=== PATIENT | female | born 1990 | race Caucasian/White ===

== ENCOUNTER 2023-10-29 10:35 | Inpatient (IN) | payer OTHER, SELFPAY ==
--- NOTE | 2023-10-22 15:53 | HP.PCM_ITS ---
History and Physical Date of Admission: 10/29/23 HPI: The patient is a 33 year old female presenting for pre-operative visit. She is scheduled for , for di/di twins and breech twin A on 10/29/23. Procedure discussed along with risks, benefits and complications. Other alternatives discussed for management. Consent form signed? Yes. PAST MEDICAL HISTORY PAST MEDICAL HISTORY Diagnosis Date ? Allergies ? Anemia ? Asthma ? Herpes, genital ? History of anxiety ? Mental disorder ? depression PAST SURGICAL HISTORY PAST SURGICAL HISTORY Procedure Laterality Date ? TONSILLECTOMY & ADENOIDECTOMY <AGE 12 CURRENT MEDICATIONS Current Outpatient Medications Medication Sig Dispense Refill ? acyclovir (ZOVIRAX) 400 mg tablet Take 1 tablet by mouth three times a day. 90 tablet 2 ? ferrous sulfate 325 mg (65 mg iron) tablet Take 1 tablet by mouth every other day. 30 tablet 4 ? aspirin, enteric coated (ASPIRIN, ENTERIC COATED) 81 mg EC tablet Take 81 mg by mouth once daily. ? albuterol (PROVENTIL) 2.5 mg/3 mL nebulizer solution ? EPINEPHrine (EPIPEN 2-NÉSTOR) 0.3 mg/0.3 mL auto-injector ? [id number]-xpjr-met-choln (GERITOL TONIC WITH FERREX 18) 2.5 mg-50 mg-18 iron/15 mL liqd ? PNV/ferrous sulfate/folic acid (LIQUID VITAMIN ORAL) No current facility-administered medications for this visit. ALLERGIES: Eggs [Egg], Iodine, Milk, Shellfish Derived, and Sulfites PERSONAL HISTORY: SOCIAL HISTORY Social History Tobacco Use ? Smoking status: Former Years: 5 Types: Cigarettes Quit date: 03/24/2013 Years since quittin.5 ? Smokeless tobacco: Never Vaping Use ? Vaping Use: Never used Substance Use Topics ? Alcohol use: Not Currently Comment: rarely ? Drug use: Never FAMILY HISTORY: FAMILY HISTORY FAMILY HISTORY Problem Relation Age of Onset ? other (basal cell carcinoma) Mother ? Bipolar disorder Father ? Suicide Attempts Father ? Alcohol/Drug Father ? Alcohol/Drug Brother ? Alcohol/Drug Brother ? Hypertension Maternal Grandmother ? Heart Maternal Grandmother ? Hyperlipidemia Maternal Grandmother ? Hypertension Maternal Grandfather ? Skin Cancer Maternal Grandfather ? Lung Cancer Maternal Grandfather ? Heart Maternal Grandfather ? Brain Cancer Paternal Grandmother ? Diabetes Paternal Grandfather ? No Known Problems Daughter ? No Known Problems Daughter REVIEW OF SYMPTOMS: GENERAL: denies fevers or chills ENDOCRINOLOGY: has not been on steroids Cardiology : denies palpitations or chest pain Respiratory: denies SOB or cough Hematology: denies history of prolonged bleeding or easy bruising or VTE Allergy: Denies history of personal or family history of allergy to anesthesia PHYSICAL EXAMINATION: VITALS: Blood pressure 109/76, weight 210 lb 6.4 oz (95.4 kg), last menstrual period 02/11/2023. GENERAL: The patient is well nourished, well hydrated in no acute distress. , The patient is oriented to time, place, and person. NECK: Supple. No lynphadenopathy, normal thyroid, no thyromegaly. LUNGS: Clear to auscultation bilaterally. no wheezes, rhonchi or rales HEART: Regular rate and rhythm, Normal heart sounds, and No murmurs or gallops abd- soft, nontender, gravid IMPRESSION: Estimated Date of Delivery: 11/18/23 Di/DI twins, breech twin a PLAN: The risks/benefits/alternatives and personal involved for the planned c- section were reviewed with the patient. Her questions were answered to her satisfaction and she desires to proceed. Consent was signed. I reviewed with her postop instructions and expectations. I have reviewed and updated past medical and surgical history, medications and allergies
[2023-10-29] VITALS (15 sets, daily range): BP systolic 94–117; BP diastolic 62–89; PULSE 66–94; RESP 16; TEMP 36.1–36.9; O2SAT 96–100; BMI 38.6
--- NOTE | 2023-10-29 09:12 | PCM.PRE.AN2 ---
ASA Classification* ASA Classification ASA Classification: 2 Assessment & Plan Anesthesia* Anesthesia Assessment Anesthesia Assessment: Discussed sedation and/or anesthesia options, risks, benefits, and alternatives with patient/parents/legal guardian. Questions invited. The patient/parents/legal guardian/POA seems to understand and agrees to proceed with anesthesia plan. Reviewed the physical assessment, medical history, allergy history and patient home medications list prior to surgery/procedure/anesthetic and documented any changes. Performed airway and anesthesia risk assessments. 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 When Was Last Pacemaker Check QUESTION #4 FULL TEXT: You/Your Family Experience fever (hyperthermia) with Anesthesia PONV PONV - rail car unloader: PONV - rail car unloader Female HX of Motion Sickness HX of N/V After Surgery Non-Smoker Duration of Surgery greater than 60 minutes Number of Risk Factors PONV Score Respiratory Assessment Respiratory Assessment - rail car unloader: Respiratory Tract Infection Hx - rail car unloader Hx Respiratory Tract Infection STOP Sleep Apnea STOP Sleep Apnea - rail car unloader: STOP Sleep Apnea - rail car unloader Hx Hypertension Hx Sleep Apnea CPAP BIPAP Do you snore loudly (louder than talking or can be heard Do you often feel tired/ fatigued/ sleepy during daytime? Has anyone observed you stop breathing during sleep? STOP Results QUESTION #5 FULL TEXT : Do you snore loudly (louder than talking or can be heard through closed doors)? 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 Specify any problems Hx of Preganancy in last 3 Months Nurse Filling Out Transfusion & Questions: Date: Time: Patient unable to answer at this time (ie. confused, unrespo /Reproduction History /Reproductive History - rail car unloader: /Reproductive Hx- rail car unloader Hx Now Gestational Age (in weeks): EDC: Hx Hx Para Hx Section SAB Anesthesia Focused Assessment* Airway Assessment Mouth opens (cm): 3 Mallampati Score: II Focused Labs Anesthesia Preop lab: CBC WBC 9.5 K/mm3 (4.4-11.0) 10/30/23 04:25 RBC 3.28 M/mm3 (4.2-5.4) L 10/30/23 04:25 Hgb 9.0 g/dL (12.0-15.0) L 10/30/23 04:25 Hct 28.3 % (37-47) L 10/30/23 04:25 Plt Count 167 K/mm3 (150-450) 10/30/23 04:25 CHEMISTRY COAG Review of Systems (Anesthesia) ROS Narrative System reviewed and no additional complaints, except as documented. [facility] Medical History (Updated 11/01/23 @ 11:05 by Claire Ferrell CNM) Genital herpes affecting Asthma Headache depression Depression Anxiety Home Medications ?Medication ?Instructions ?Recorded ?Last Taken ?Type acyclovir 400 mg tablet 400 mg PO TID herpes 10/29/23 Unknown History albuterol sulfate .ROUTE asthma 10/29/23 Unknown History aspirin 81 mg capsule 81 mg PO DAILY 10/29/23 Unknown History epinephrine 0.3 mg/0.3 mL 0.3 mg IM Q1H PRN anaphylaxis 10/29/23 Unknown History injection syringe ferrous sulfate 325 mg (65 mg 325 mg PO TID anemia 10/29/23 Unknown History iron) tablet vit no.95-ferrous 1 tab PO DAILY supplement 10/29/23 Unknown History fumarate 28 mg-folic acid 800 mcg tablet () acetaminophen 650 mg/20.3 mL oral 1,000 mg (31.2308 mL) PO Q6H 11/01/23 Unknown Rx solution #1,015 mL ibuprofen 100 mg/5 mL oral 600 mg (30 mL) PO Q6H #473 mL 11/01/23 Unknown Rx suspension (Children's Ibuprofen) sennosides 8.6 mg-docusate sodium 1 - 2 tab PO DAILY #0 tabs 11/01/23 Unknown Rx 50 mg tablet (Stool Softener-Stimulant Laxative) Allergy/AdvReac Type Severity Reaction Status Date / Time iodine Allergy Severe Anaphylaxis Verified 10/29/23 10:56 lactose (dairy lactose) Allergy Severe Chest Verified 10/29/23 10:56 tightness shellfish derived Allergy Severe Anaphylaxis Verified 10/29/23 10:56 egg Allergy Mild Abd Verified 10/29/23 10:56 cramps/diarrhea sulfite Allergy Unknown Other Verified 10/29/23 10:56 Surgical History (Updated 10/30/23 @ 08:53 by Claire Ferrell CNM) History of surgery Social History Smoking Status: Never smoker
[2023-10-29] MEDS: Lactated Ringers 1,000 ML 999 ML IV (10:00)
[2023-10-29 11:19] LABS: Absolute Lymphocyte Count 1.86 X10^3/uL (0.83-4.51); Basophil# 0.04 X10^3/uL; Basophil% 0.5 % (0-1); Eosinophil# 0.19 X10^3/uL; Eosinophils% 2.5 % (0-5); Hematocrit 31.3 % (37-47); Lymphocyte # 1.86 X10^3/ul (0.83-4.51); Lymphocyte % 24.1 % (19-41); Mean Corp Hgb Conc 31.9 g/dL (32-36); Mean Corpuscular Hgb 27.3 pg (27.0-32.0); Mean Corpuscular Volume 85.5 fL (81-99); Mean Platelet Vol. 11.7 fl (6.2-12.0); Monocyte# 0.57 X10^3/uL; Monocyte% 7.4 % (0-10); NRBC Flagged by Analyzer 0 % (0-5); Neutrophil # 4.99 X10^3/uL (2.7-7.7); Neutrophil % 64.7 % (47-70); Platelet Count 196 K/mm3 (150-450); RBC Distribution Width CV 17.2 % (11.6-14.6); Red Blood Count 3.66 M/mm3 (4.2-5.4); White Blood Count 7.7 K/mm3 (4.4-11.0)
[2023-10-29] MEDS: Lactated Ringers 1,000 ML 150 ML IV (11:29)
[2023-10-29 11:30] LABS: Syphilis Antibodies Non-reactive
[2023-10-29] MEDS: Sodium Citrate/Citric Acid 30 ML UDC PO (11:53)
[2023-10-29] MEDS: Cefazolin 2 GM in 0.9% Normal Saline (100mL Bag) 100 ML IV (12:27)
--- NOTE | 2023-10-29 12:35 | PLAC_PTH ---
PATIENT: JACK CANADA LOC: [facility] U#:[id number] AGE/SX: 33/F ROOM: WP007 RE10/29/[address]: Dr. Brittaney Penaloza MD : 1990 BED: 1 DIS: 11/01/2023 SPEC #: [id number] RECD: 10/29/23 15:57 STATUS: TERRENCE SILVA #: [id number] SWATI: 10/29/23 12:[address]: Brittaney Penaloza DEPT: SURGICAL PATHOLOGY RECD BY: Felipe Grayson ENTERED: 10/30/23 07:14 SP TYPE: PLACENTA OTHR DR: Dr. Stephanie Hsu, Tissues: Placenta, NOS Procedures: Surgery Specimen Level V HEADER OPERATION: section PRE-OP DIAGNOSIS: Twins TISSUE SUBMITTED: Placenta MICROSCOPIC DIAGNOSIS Twin placenta: Dichorionic and diamniotic Twin Placenta. PLACENTA A: Placental disc - third trimester placenta (397 gm). Membranes - no pathologic diagnosis. Umbilical cord - three blood vessels and no pathologic diagnosis. PLACENTA B: Placental disc: third trimester placenta (412gm). Membranes; no pathologic diagnosis. Umbilical cord: three blood vessels and no pathologic diagnosis. SJ: 11/03/2023 MICROSCOPIC DESCRIPTION Slides are reviewed. GROSS DESCRIPTION SPECIMEN: TWIN PLACENTA / CLINICAL INFORMATION: A. Weight: A - 2.385 kg; B - 2.535kg B. Gestational Age: 37 weeks C. Sex: A- Female, B- Female This specimen consists of twin placenta with two separate placental discs, two membranous sacs, and two umbilical cords. Placenta A is identified by a clamp. Dividing membranes septum is not clearly identified, possibly present on placenta B. PLACENTA A: PLACENTAL WEIGHT (POST FIXATION): 397gm PLACENTAL DIMENSIONS: 18.0 x 16.0 x 3.0cm PLACENTAL SHAPE: triangular PLACENTAL WEIGHT FOR GESTATIONAL AGE: Within 10-99th percentile MEMBRANES - Present A. Insertion: Marginal B. Site of rupture from edge: Fragmented. Distance of rupture cannot be assessed C. Color of membrane: Dias-issa D. Abnormalities: None UMBILICAL CORD - Present A. Color: Dias-issa B. Insertion: Central C. Length: 27.0cm D. Diameter: 1.2cm E. Number of vessels: Three F. Abnormalities: None PLACENTAL DISC - Present A. Color of surface: Dias-issa B. surface abnormalities: None C. Maternal cotyledons: Intact with minimal tears D. Attached retro placental clot: No clot E. Cut surface: Dark red and spongy F. Lesions: None G. Separate clot: Absent PLACENTA B: PLACETNAL WEIGHT- 412 gm PLACENTAL DIMENSION - 18.0 x 19.0 x 3.0cm PLACENTAL SHAPE- Usual ovoid PLACENTAL WEIGHT FOR GESTATIONAL AGE: Within 10-99th percentile MEMBRANES - Present A. Insertion: Marginal B. Site of rupture from edge: Fragmented. Distance of rupture cannot be assessed C. Color of membrane: Dias-issa D. Abnormalities: None UMBILICAL CORD - Present A. Color: Dias-issa B. Insertion: Paracentral C. Length: 22.0cm D. Diameter: 1.5cm E. Number of vessels: Three F. Abnormalities: None PLACENTAL DISC - Present A. Color of surface: Dias-issa B. surface abnormalities: None C. Maternal cotyledons: Intact with minimal tears D. Attached retro placental clot: No clot E. Cut surface: Dark red and spongy F. Lesions: None G. Separate clot: Absent SECTIONS SUBMITTED: Cylinder Handler sections are submitted in 12 cassettes as follows: Placenta A- 1-6 (1 - Membrane, 2 - umbilical cord maternal length, 3- umbilical length, 4-6 - placental disc, maternal and surface), 7-11 - placenta B (7 - membrane roll, 8 - umbilical cord, length inked black, 9-11 - placental disc, maternal and surfaces),12- l area suspicious for dividing membrane septum. SIDDHARTH/ 11/02/23 TC:4 CPT: 76082 x2
--- NOTE | 2023-10-29 13:15 | OP.PCM_ITS ---
Maternal Data Information Final GABRIELLA: 11/18/23 Gestational age: 37 1/7 Details Operative Information Date of Procedure: 10/29/23 Pre-Operative Diagnosis: dichorionic diamniotic twins, breech twin 1 Post-Operative Diagnosis: same Classification: Scheduled Procedure Type: low transverse kettle cook #1: Michael Frias Type of Anesthesia: Spinal Anesthesiologist: Franci Reilly Antibiotic Given: Ancef 2 grams IV x1 Drain: Ramsey to straight drain Estimated Blood Loss: 800 Fluids Replaced: 1000 Procedure Start Time: 12:48 Procedure Stop Time: 13:19 Time of Delivery: 12:51 Findings Description of Procedure: The patient was taken to the operating room. She was prepped and draped in the dorsal supine position with a leftward tilt. A Pfannenstiel skin incision was made approximately 2 cm above the symphysis pubis and carried through to underlying layer fascia with the scalpel. The fascia was incised incised in the midline and extended laterally with the Smith scissors. The fascia was dissected off the rectus muscles with blunt and sharp dissection. The rectus muscles were in the midline and the peritoneum was entered bluntly. The peritoneal incision was stretched and the bladder blade was placed. The uterine incision was made in a low transverse fashion with the scalpel and extended superiorly and inferiorly with blunt dissection. The amniotic membranes were ruptured bluntly and clear amniotic fluid returned. Baby #1 was brought out complete breech. The legs were swept out individually. The back was turned up the arms were swept out individually and the head delivered easily in the flexed position with out traction. The cord was clamped and cut and the infant was handed off to waiting nursing staff. Baby #2 was examined and found to be vertex. The amniotic membranes were ruptured with clear fluid and the baby was delivered vertex in the usual sterile fashion. The infant's head was brought to the incision in the flexed position and delivered without difficulty. The remainder of the infant was delivered with gentle traction and fundal pressure in the standard fashion. The mouth and nares were bulb suctioned. The cord was clamped and cut as the was stimulated. Cord clamping was minimally delayed. The was handed off to the waiting nursing staff. The placenta was delivered with fundal massage and gentle traction in the standard fashion. The uterus was exteriorized and cleared of all clots and debris. The cervix was dilated with a ring forcep. The uterine incision was closed with #1 Vicryl in a running locked fashion. A second layer of the same suture was used in an imbricating fashion. 2 [id number] 0 Vicryl sutures were needed in the left side and a bleeding sinus and then hemostasis was noted. The incision was examined and was found to be hemostatic. The uterus was placed back into the peritoneal cavity and hemostasis was again confirmed. Some Fabiana was placed over the incision. The rectus muscles were examined and any bleeding was Bovie cauterized. The parietal peritoneum and rectus muscles were closed en bloc with an 0 Vicryl running suture. Fabiana was then placed over the rectus muscles. The rectus fascia was examined and any bleeding was Bovie cauterized and the rectus fascia was closed with #1 PDS suture in a running standard fashion. The subcutaneous tissue was examining and any bleeding was Bovie cauterized. The subcutaneous tissue was reapproximated with 3-0 Vicryl suture. The skin was closed in a subcuticular fashion by the CASTING AND PASTING SUPERVISOR with me present in the labor and delivery suite. I performed the remainder of the procedure with assistance. All sponge, lap, and needle counts were correct. The patient was taken to her room for recovery in a stable condition. Presentation: Positive for Complete Breech Amniotic Membrane Rupture Type: Artificial Amniotic Fluid Description: Clear Placental Delivery Description: Expressed Placenta Disposition: Sent to Pathology Cord Vessel Description: 3 Vessels Cord Entanglement: None A Gender: Female (1 minute): 9 (5 minute): 9 Delayed Cord Clamping: No Complications Complications: none Admit VTE Documentation VTE Present on Admission: No VTE Mechan Device Prophylaxis: SCD's VTE Pharm Prophylaxis Ordered: Yes Baby B Information Amniotic Membrane Rupture Type: Artificial Presentation: Vertex Operative Information Mode of Delivery: Cord Vessel Description: 3 Vessels Cord Entanglement: None B gender: Female (1 minute): 7 (5 minute): 8 Delayed Cord Clamping: No
[2023-10-29] MEDS: Oxytocin 15 Units/NS 250ml 15 UNITS/250 ML IV.SOLN 83 UNITS IV (13:35)
[2023-10-29] MEDS: 0.9% Saline Lock 10 ML Syringe IV ×2 (14:42→20:28)
[2023-10-29] MEDS: Ketorolac 30 MG/ML Syringe IV ×2 (14:42→20:28)
[2023-10-29 15:53] LABS: Pathology Specimen OB SEE PATHOLOGY REPORT
[2023-10-30] MEDS: Enoxaparin 40 MG/0.4 ML Syringe SC (00:50)
[2023-10-30 01:08] VITALS: BP 107/71; PULSE 80; RESP 16; TEMP 36.5; O2SAT 100
[2023-10-30] MEDS: Ketorolac 30 MG/ML Syringe IV ×4 (02:45→21:36)
[2023-10-30] MEDS: 0.9% Saline Lock 10 ML Syringe IV ×3 (02:45→21:36)
[2023-10-30 04:09] VITALS: BP 98/63; PULSE 71; RESP 16; TEMP 36.3; O2SAT 98
[2023-10-30 04:36] LABS: Hematocrit 28.3 % (37-47); Mean Corp Hgb Conc 31.8 g/dL (32-36); Mean Corpuscular Hgb 27.4 pg (27.0-32.0); Mean Corpuscular Volume 86.3 fL (81-99); Mean Platelet Vol. 11.2 fl (6.2-12.0); Platelet Count 167 K/mm3 (150-450); RBC Distribution Width CV 17.2 % (11.6-14.6); RBC Distribution Width SD 54.4 fl (35.1-43.9); Red Blood Count 3.28 M/mm3 (4.2-5.4); White Blood Count 9.5 K/mm3 (4.4-11.0)
[2023-10-30 08:00] VITALS: BP 103/75; PULSE 76; RESP 16; TEMP 36.5; O2SAT 98
--- NOTE | 2023-10-30 08:51 | PN.OBGYN_ITS ---
Subjective Subjective Patient seen at bedside. Sitting in chair at bedside. Pain is controlled with Toradol IV. twins with minimal support. Desires shower today. Passing flatus. Objective Data Objective Data Vital Signs: Vital Signs Temp Pulse Resp BP Pulse Ox O2 Del Method 97.7 F L 76 16 103/75 98 Room Air 10/30/23 08:00 10/30/23 08:00 10/30/23 08:00 10/30/23 08:00 10/30/23 08:00 10/30/23 08:00 Oxygen Delivery Method Room Air Weight: 218 lb Body Mass Index (BMI) 38.6 Intake & Output: Intake and Output for Last 24 Hours 10/28/23 10/29/23 10/30/23 23:59 23:59 23:59 Intake Total 1500 / 1500 Output Total 1400 / 1400 Balance 100 / 100 Lab / Micro Data 10/30/23 04:25 Labs: Laboratory Results - last 24 hr 10/29/23 10:00: WBC Cancelled, Corrected WBC Cancelled, RBC Cancelled, Hgb Cancelled, Hct Cancelled, MCV Cancelled, MCH Cancelled, MCHC Cancelled, RDW Std Deviation Cancelled, RDW Coeff of Alta Cancelled, Plt Count Cancelled, MPV Cancelled, Immature Gran % (Auto) Cancelled, Neut % (Auto) Cancelled, Lymph % (Auto) Cancelled, Bacon % (Auto) Cancelled, Eos % (Auto) Cancelled, Baso % (Auto) Cancelled, Absolute Neuts (auto) Cancelled, Absolute Lymphs (auto) Cancelled, Total Counted Cancelled, Neutrophils % (Manual) Cancelled, Band Neutrophils % Cancelled, Lymphocytes % (Manual) Cancelled, Monocytes % (Manual) Cancelled, Eosinophils % (Manual) Cancelled, Basophils % (Manual) Cancelled, Metamyelocytes % Cancelled, Myelocytes % Cancelled, Promyelocytes % Cancelled, Blast Cells % Cancelled, Plasma Cell % (Manual) Cancelled, Other Cells % Cancelled, Nucleated RBC % Cancelled, Nucleated RBCs/100 WBC Cancelled, Differential Comment Cancelled, Diff Path Review Cancelled, Hypersegmented Neuts Cancelled, Atypical Lymphocytes Cancelled, Reactive Lymphocytes Cancelled, Smudge Cells Cancelled, Toxic Granulation Cancelled, Toxic Vacuolation Cancelled, Dohle Bodies Cancelled, Fabiano Rods Cancelled, Platelet Estimate Cancelled, Plt Morphology Comment Cancelled, RBC Morphology Cancelled 10/29/23 10:00: RBC Morphology Cancelled, Polychromasia Cancelled, Hypochromasia Cancelled, Basophilic Stippling Cancelled, Anisocytosis Cancelled, Microcytosis Cancelled, Macrocytosis Cancelled, Spherocytes Cancelled, Sickle Cells Cancelled, Target Cells Cancelled, Tear Drop Cells Cancelled, Ovalocytes Cancelled, Stomatocytes Cancelled, Beckham-Peridot Bodies Cancelled, Reynaldo Cells Cancelled, Bite Cells Cancelled, Crenated Cell Cancelled, Acanthocytes (Spur) Cancelled, Rouleaux Cancelled, Schistocytes Cancelled, Syphilis Total Ab Non- reactive, Blood Type O POSITIVE, Antibody Screen NEGATIVE 10/29/23 11:00: WBC 7.7, RBC 3.66 L, Hgb 10.0 L, Hct 31.3 L, MCV 85.5, MCH 27.3, MCHC 31.9 L, RDW Std Deviation 53.0 H, RDW Coeff of Alta 17.2 H, Plt Count 196, MPV 11.7, Immature Gran % (Auto) 0.800, Neut % (Auto) 64.7, Lymph % (Auto) 24.1, Bacon % (Auto) 7.4, Eos % (Auto) 2.5, Baso % (Auto) 0.5, Absolute Neuts (auto) 5.0, Absolute Lymphs (auto) 1.86, Nucleated RBC % 0 10/30/23 04:25: WBC 9.5, RBC 3.28 L, Hgb 9.0 L, Hct 28.3 L, MCV 86.3, MCH 27.4, MCHC 31.8 L, RDW Std Deviation 54.4 H, RDW Coeff of Alta 17.2 H, Plt Count 167, MPV 11.2 ROS Eyes Eyes: Denies blurry vision, change in vision or spots in vision ENT HEENT: Denies dizziness or headache(s) Cardiovascular Cardiovascular: Denies abdominal pain, chest pain or dyspnea Respiratory/Chest Respiratory/Chest: Denies cough, dyspnea, shortness of breath at rest or shortness of breath with exertion Gastrointestinal Gastrointestinal: Denies abdominal pain, diarrhea or vomiting Genitourinary Genitourinary: Denies change in urinary stream, difficulty urinating or dysuria Musculoskeletal Musculoskeletal: Reports none Integumentary Integumentary: Denies rash Neurologic Neurologic: Denies dizziness, headache(s), memory loss or weakness Physical Exam Narrative Dressing is dry and intact Const alert and no apparent distress General Appearance: cooperative and comfortable Exam Limitations: no limitations HEENT normocephalic Eyes General Eye: normal appearance of both eyes Neck full ROM General: normal visual inspection Chest Chest: symmetrical chest wall rise Resp normal respiratory effort and normal air movement Effort and Inspection: symmetric chest movement Auscultation: clear to auscultation bilaterally Cardio regular rate and regular rhythm GI normal to inspection, nondistended, normoactive bowel sounds Back/Spine normal ROM Extremity full ROM and no calf tenderness General Extremity: normal exam except as noted Skin no rashes or lesions noted Neuro CN's II-XII intact bilaterally Psych mental status grossly normal Assessment & Plan (1) Status post section routine follow-up: (2) Care and examination of lactating mother: (3) Anxiety: PLAN: Plan POD 1 C/S Pain control- Cannot take certain PO medications due to lactose in additives- will continue Toradol IV for pain control support Increase ambulation today
[2023-10-30 12:00] VITALS: BP 105/76; PULSE 88; RESP 16; TEMP 36.8; O2SAT 99
--- NOTE | 2023-10-30 16:09 | CASEMGMT ---
Labor and Delivery Lithograph Press Operator Sw completed chart review and acknowledges social work consult due to maternal mental health history positive for anxiety. Sw presented to bedside and introduced self to mother of baby and father of baby. Sw completed psychosocial assessment and asked mother of baby to complete [place] Depression Scale. Sw reviewed results with MOB and provided education and support at length. MOB and FOB have everything that they need for baby and a lot of natural supports in place. No immediate issues or concerns at this time. MOB and baby to be discharged when medically ready. Sw to enter formal psychosocial assessment at later date. Concepcion Hopper, STRATEGIC PLANNING DIRECTOR, POSTAL SERVICE MAIL PROCESSOR
[2023-10-30 17:00] VITALS: BP 113/62; PULSE 77; RESP 16; TEMP 36.6; O2SAT 96
[2023-10-30 19:55] VITALS: BP 111/75; PULSE 68; RESP 16; TEMP 36.6; O2SAT 100
[2023-10-31] MEDS: Enoxaparin 40 MG/0.4 ML Syringe SC (00:45)
[2023-10-31 01:42] VITALS: BP 106/66; PULSE 71; RESP 16; TEMP 36.7; O2SAT 97
[2023-10-31] MEDS: 0.9% Saline Lock 10 ML Syringe IV (03:15)
[2023-10-31] MEDS: Ketorolac 30 MG/ML Syringe IV (03:15)
[2023-10-31 08:10] VITALS: BP 102/75; PULSE 85; RESP 16; TEMP 36.7; O2SAT 99
[2023-10-31] MEDS: Ibuprofen 100 MG/5 ML UDC 600 MG PO ×4 (09:37→22:02)
--- NOTE | 2023-10-31 10:49 | PCM.PN.CNM ---
Subjective Subjective Pain controlled with liquid Ibuprofen and Tylenol. Minimal ambulation. Support with . Voiding without difficulty. Lochia minimal. Objective Data Objective Data Vital Signs: Vital Signs Temp Pulse Resp BP Pulse Ox O2 Del Method 98.0 F 85 16 102/75 99 Room Air 10/31/23 08:10 10/31/23 08:10 10/31/23 08:10 10/31/23 08:10 10/31/23 08:10 10/31/23 08:10 Oxygen Delivery Method Room Air Weight: 218 lb Body Mass Index (BMI) 38.6 Intake & Output: Intake and Output for Last 24 Hours 10/29/23 10/30/23 10/31/23 23:59 23:59 23:59 Intake Total 1500 / 1500 Output Total 1400 / 1400 Balance 100 / 100 Lab / Micro Data 10/30/23 04:25 ROS Eyes Eyes: Denies blurry vision, change in vision or spots in vision ENT HEENT: Denies dizziness or headache(s) Cardiovascular Cardiovascular: Denies abdominal pain, chest pain or dyspnea Respiratory/Chest Respiratory/Chest: Denies cough, dyspnea, shortness of breath at rest or shortness of breath with exertion Gastrointestinal Gastrointestinal: Denies abdominal pain, diarrhea or vomiting Genitourinary Genitourinary: Denies change in urinary stream, difficulty urinating or dysuria Musculoskeletal Musculoskeletal: Reports none Integumentary Integumentary: Denies rash Neurologic Neurologic: Denies dizziness, headache(s), memory loss or weakness Assessment & Plan (1) Anxiety: (2) Care and examination of lactating mother: (3) Status post section routine follow-up: PLAN: Plan POD Primary C/S twins support Pain control D/C home tomorrow
[2023-10-31] MEDS: Acetaminophen 650 MG/20 ML UDC 1000 MG PO ×2 (11:45→18:04)
[2023-10-31 14:14] VITALS: BP 101/71; PULSE 74; RESP 17; TEMP 37; O2SAT 98
[2023-10-31 19:29] VITALS: BP 108/70; PULSE 62; RESP 16; TEMP 36.2; O2SAT 100
[2023-10-31 20:50] VITALS: BP 114/82; PULSE 62; RESP 18; O2SAT 100
--- NOTE | 2023-10-31 21:03 | NURSING ---
RN at bedside for hourly rounding. Patient tearful and states she feels like her heart is racing and is feeling very anxious. Support given. Vitals obtained and all within normal limits, HR 62. Lung sounds clear to auscultation and heart sounds regular in rhythm. Patient states she may be starting to have a panic attack. RN asked patient if she would like RN to discuss anxiety medication with provider, patient declines. RN encouraged patient to get into warm shower, lowered lights and played soothing music. FOB in bathroom with patient giving support. This RN taking infants to the nursery to allow for maternal rest, shanna return infants when displaying feeding cues or sooner if patient desires.
[2023-11-01] MEDS: Enoxaparin 40 MG/0.4 ML Syringe SC (00:04)
[2023-11-01] MEDS: Acetaminophen 650 MG/20 ML UDC 1000 MG PO ×4 (00:04→18:06)
[2023-11-01 01:57] VITALS: BP 114/76; PULSE 68; RESP 16; TEMP 36.8; O2SAT 99
[2023-11-01] MEDS: Ibuprofen 100 MG/5 ML UDC 600 MG PO ×3 (04:12→16:36)
[2023-11-01 08:30] VITALS: BP 111/74; PULSE 73; RESP 16; TEMP 36.2; O2SAT 99
--- NOTE | 2023-11-01 10:57 | PCM.DC.SUM ---
Providers Date of Admission: 10/29/23 Primary Care Physician: Dr. Stephanie Hsu DO Reason For Visit: SCHEDULED Diagnosis Discharge Diagnosis (1) Anxiety: Status: Acute Code(s): F41.9 - Anxiety disorder, unspecified (2) Care and examination of lactating mother: Status: Acute Code(s): Z39.1 - Encounter for care and examination of lactating mother (3) Status post section routine follow-up: Status: Acute Code(s): Z39.2 - Encounter for routine follow-up; Z98.891 - History of uterine scar from previous surgery (4) Post-operative pain: Status: Acute Code(s): G89.18 - Other acute postprocedural pain Plan POD 3 Primary C/S twins support- supplementing with formula due to weight loss Pain controlled with liquid Ibuprofen and Tylenol Desires discharge home later tonight Medications at Discharge Home Medications acyclovir 400 mg tablet 400 mg PO TID herpes 10/29/23 albuterol sulfate .ROUTE asthma 10/29/23 aspirin 81 mg capsule 81 mg PO DAILY 10/29/23 epinephrine 0.3 mg/0.3 mL injection syringe 0.3 mg IM Q1H PRN anaphylaxis 10/29/23 ferrous sulfate 325 mg (65 mg iron) tablet 325 mg PO TID anemia 10/29/23 vit no.95-ferrous fumarate 28 mg-folic acid 800 mcg tablet () 1 tab PO DAILY supplement 10/29/23 acetaminophen 650 mg/20.3 mL oral solution 1,000 mg (31.2308 mL) PO Q6H #1,015 mL 11/01/23 ibuprofen 100 mg/5 mL oral suspension (Children's Ibuprofen) 600 mg (30 mL) PO Q6H #473 mL 11/01/23 sennosides 8.6 mg-docusate sodium 50 mg tablet (Stool Softener-Stimulant Laxative) 1 - 2 tab PO DAILY #0 tabs 11/01/23 Hospital Course Operations section Procedures None Summary of Care Provided Minutes Spent on Discharge: 20 Hospital Course: Primary Section. Hospital course was uneventful. Physical Exam Narrative Dressing is dry and intact Const alert and no apparent distress General Appearance: cooperative and comfortable Exam Limitations: no limitations HEENT normocephalic Eyes General Eye: normal appearance of both eyes Neck full ROM General: normal visual inspection Chest Chest: symmetrical chest wall rise Resp normal respiratory effort and normal air movement Effort and Inspection: symmetric chest movement Auscultation: clear to auscultation bilaterally Cardio regular rate and regular rhythm GI normal to inspection, nondistended, normoactive bowel sounds Back/Spine normal ROM Extremity full ROM and no calf tenderness General Extremity: normal exam except as noted Skin no rashes or lesions noted Neuro CN's II-XII intact bilaterally Psych mental status grossly normal Weight / BMI Weight Weight: 218 lb Body Mass Index (BMI) 38.6 ABG / Lab / Microbiology Data 10/30/23 04:25 D/C Instructions Discharge Diet: No restrictions Discharge Activity: May Drive (2 weeks) and May Shower May resume sexual activity in: 6-8 weeks Weight Bearing Status: Weight bearing as tolerated Call your doctor if your incision/area has: Continuous Slow Oozing, Sudden Increased Bleeding, Increased Pain/ Swelling, Increased Redness, Foul Smelling Discharge and Swelling at the incision site Call your doctor if you observe: Fever of 101 or Higher, Numbness or Tingling, Using more than 1 pad per hour, Shortness of breath, Dizziness, Swelling in the ankles, Chest pain, Calf discomfort and Uncontrolled pain Suture Line Care: Avoid Pulling/Pushing Remove Dressing in: 5 days When: 1 week for incision check Meaningful Use Info Meaningful Use Meaningful Use Diagnoses (Choose all that apply): None applicable Ischemic Stroke Statin Dosing Therapy Reference: STATIN DOSE THERAPY REFERENCE: * Patients > 75 years receive moderate or high dose statin therapy. * Patients 75 years or YOUNGER should receive HIGH intensity statin dose unless contraindicated. You will be required to document reason for non-treatment if statin daily dose does not meet guidelines. HIGH DOSE STATIN THERAPY DAILY Atorvastatin > than or = to 40 mg Rosuvastatin > than or = to 20 mg Amlodipine + Atorvastatin > than or = to 2.5/40 mg Ezetimibe + Simvastatin 10/80 mg Simvastatin 80mg Discharge Plan Admission Admit Date/Time: 10/29/23 10:35 Primary Reason for Your Visit: Elective Primary Section Attending Provider: Brittaney Penaloza Primary Care Provider: Stephanie Hsu Discharge Orders/Prescriptions Prescriptions: New sennosides-docusate sodium [Stool Softener-Stimulant Laxat] 8.6-50 mg Tablet 1 - 2 tab PO DAILY Qty: 0 0RF ibuprofen [Children's Ibuprofen] 100 mg/5 mL Suspension 600 mg PO Q6H Qty: 473 0RF acetaminophen 650 mg/20.3 mL Solution 1,000 mg PO Q6H Qty: 1015 0RF No Action PNV cmb#95-ferrous fumarate-FA [] 28 mg iron- 800 mcg tablet 1 tab PO DAILY aspirin 81 mg capsule 81 mg PO DAILY epinephrine 0.3 mg/0.3 mL syringe 0.3 mg IM Q1H PRN (Reason: anaphylaxis) Rx Instructions: do not exceed 12 doses per 24 hrs albuterol sulfate .ROUTE ferrous sulfate 325 mg (65 mg iron) tablet 325 mg PO TID acyclovir 400 mg tablet 400 mg PO TID Referrals / Follow Up: Stephanie Hsu DO [Primary Care Provider] - Disposition Disposition (needs filled in before D/C Order can be placed): Home, Self Care
[2023-11-01] MEDS: Polyethylene Glycol 3350 17 GM PACKET PO (12:23)
[2023-11-01 16:00] VITALS: BP 109/78; PULSE 69; RESP 16; TEMP 36.6; O2SAT 98
== END 2023-11-01 18:25 | disposition home or self-care (01) | DRG 787 ==
PROVIDERS: Admitting Provider Obstetrics & Gynecology; PCP Family Medicine; Visit Provider Obstetrics & Gynecology
PROC: 10D00Z1 Extraction of Products of Conception, Low, Open Approach (ICD-10-PCS; CPT 59514; principal; 2023-10-29 11:45)
DX: O32.1XX1 Maternal care for breech presentation, fetus 1 (principal); O99.354 Diseases of the nervous system complicating childbirth; F41.9 Anxiety disorder, unspecified; Z37.2 Twins, both liveborn; G89.18 Other acute postprocedural pain; Z87.891 Personal history of nicotine dependence; O99.344 Other mental disorders complicating childbirth; O30.043 Twin pregnancy, dichorionic/diamniotic, third trimester
CPT/HCPCS: 59050; 85025; 85027; 86780; 86850; 86900; 86901; 88307; 99221; J7120; A4216; G0378; J2405